=== PATIENT | male | born 1960 | race Caucasian/White ===

== ENCOUNTER 2020-06-07 22:10 | Emergency (ER) | payer OTHER ==
[2020-06-08 01:57] LABS: HEMOGLOBIN 16.5 gm/dl (14.0-17.5); RED BLOOD COUNT 5.29 M/UL (4.20-5.50); WHITE BLOOD COUNT 13.7 K/UL (4.5-11.0)
[2020-06-08 02:18] LABS: BUN/CREATININE RATIO 16 (0-10)
[2020-06-08] MEDS ORDERED: PEPCID40 MG PO (04:34)
== END 2020-06-08 04:45 | disposition home or self-care (01) ==
LOC: ER1 22:10
PROVIDERS: Student in an Organized Health Care Education/Training Program
DX: K29.70 Gastritis, unspecified, without bleeding (principal); F17.210 Nicotine dependence, cigarettes, uncomplicated; I10 Essential (primary) hypertension
CPT/HCPCS: 80053; 81001; 82550; 82553; 83605; 83690; 83874; 84484; 85025; 93005; 96374; 96375; 99284; J1885; J2405; Q9967

== ENCOUNTER → 2021-01-19 | Outpatient (CLI) | payer OTHER ==
[~2021-01-19] MED LIST: PEPCID40 MG PO
== END ==
LOC: KOH-I 10:30
DX: F17.210 Nicotine dependence, cigarettes, uncomplicated (principal)
CPT/HCPCS: 71271

== ENCOUNTER → 2021-06-17 | Outpatient (CLI) | payer OTHER | LOC: RAD 16:55 | DX: J20.9 Acute bronchitis, unspecified (principal); J98.11 Atelectasis; R91.8 Other nonspecific abnormal finding of lung field | CPT/HCPCS: 71046 ==